=== PATIENT | male | born 1970 | race Caucasian/White ===

== ENCOUNTER 2018-03-24 09:01 | Day surgery (SDC) | payer OTHER ==
[2018-03-23 14:55] VITALS: BMI 23.9
[2018-03-24] MEDS ORDERED: EPINEPHrine 1 MG/ML AMP ONE (09:58)
[2018-03-24] MEDS ORDERED: Propofol 500 MG/50 ML VIAL ONE ×2 (10:07→10:09)
[2018-03-24] MEDS ORDERED: Fentanyl 100 MCG/2 ML VIAL ONE (10:07)
[2018-03-24] MEDS ORDERED: Lidocaine 1% PF 5 ML VIAL ONE (11:18)
[2018-03-24] MEDS ORDERED: PROPOFOL 200 MG/20 ML VIAL ONE (11:18)
[2018-03-24] MEDS ORDERED: Dexamethasone 20 MG/5 ML VIAL ONE (11:18)
[2018-03-24] MEDS ORDERED: Succinylcholine Chloride 20 MG/ML 10 ml SYRINGE FS ONE (11:18)
[2018-03-24] MEDS ORDERED: Ondansetron HCl/PF 4 MG/2 ML Vial ONE (11:18)
--- NOTE | 2018-03-24 15:35 | OP ---
DATE OF PROCEDURE: 03/24/2018 PREOPERATIVE DIAGNOSES: Recurrent respiratory papillomatosis and hoarseness. POSTOPERATIVE DIAGNOSES: Recurrent respiratory papillomatosis and hoarseness. PROCEDURE PERFORMED: Microsuspension laryngoscopy with CO2 and [employer] shaver assisted destruction of recurrent respiratory papillomas. FINDINGS: Patient had papillomas located primarily on the vocal process region of the posterior voca l cords and along the anterior one-third of the medial aspect of the cord. PROCEDURE IN DETAIL: After consent was obtained, the patient was identified, brought to the operatin g room, and placed on the operating table in supine position. Jet ventilating tube was placed and th e patient was placed under anesthesia. We then positioned the patient and suspended a laryngoscope. The laryngoscope was suspended from the table and we proceeded under microscopic visualization, the CO2 laser was used to destroy multiple laryngeal papillomas. We then used the laryngeal blade to marc ulk the posterior aspect of the vocal process and then we were able to use hemostasis. Topical adrenaline and topical lidocaine were applied. The patient was awakened, extubated, and taken to re covery room in a stable condition prior to discharge home.
--- NOTE | 2018-03-25 15:14 | EKG ---
Test Reason : Blood Pressure : / mmHG Vent. Rate : 048 BPM Atrial Rate : 048 BPM P-R Int : 166 ms QRS Dur : 084 ms QT Int : 436 ms P-R-T Axes : 045 020 044 degrees QTc Int : 389 ms Marked sinus bradycardia Minimal voltage criteria for LVH, may be normal variant Abnormal ECG When compared with ECG of 11-MAR-2017 07:16, No significant change was found Confirmed by PAIGE SAN, ELIZABETH ([id number] on 03/25/2018 3:13:53 PM Referred By: GRAEME Confirmed By:ELIZABETH GIBSON MD
== END 2018-03-24 13:01 | disposition home or self-care (01) ==
LOC: SDC 09:01
PROVIDERS: ATTEND Specialist
DX: D14.1 Benign neoplasm of larynx (principal); B97.7 Papillomavirus as the cause of diseases classified elsewhere; Z87.891 Personal history of nicotine dependence; Z88.0 Allergy status to penicillin; Z79.899 Other long term (current) drug therapy
CPT/HCPCS: 93005; 93010; J0171; J1100; J2001; J2405; J2704; J3010

== ENCOUNTER 2018-07-06 08:15 | Emergency (ER) | payer OTHER ==
[2018-07-06 09:06] LABS: #Eosinphils 0.1 thou/uL (0.0-0.7); #Lymphocytes 1.6 thou/uL (1.20-3.40); #Monocytes 0.4 thou/uL (0.11-0.59); %Basophils 0.7 % (0.0-1.0); %Eosinophils 1.9 % (0.0-10.0); %Lymphocytes 26.2 % (21.0-51.0); %Neutrophils 65.2 % (42.0-75.0); Hemoglobin 16.2 g/dL (14.0-18.0); Mean Corpuscular HGB CONC 33.8 g/dL (32.0-36.0); Mean Corpuscular Hemoglobin 28.4 pg (27.0-31.0); Mean Corpuscular Volume 83.9 fL (78.0-98.0); Mean Platelet Volume 7.1 fL (7.4-10.4); Platelet Count 290 thou/uL (130-400); RBC Distribution Width 12.1 % (11.5-14.5); Red Blood Cell (RBC) Count 5.72 mill/uL (4.70-6.10); White Blood Cell (WBC) Count 6.1 thou/uL (4.8-10.8)
[2018-07-06] MEDS ORDERED: Nitroglycerin 2% Ointment 1 INCH/1 GM Packet ONE (09:22)
[2018-07-06 09:23] LABS: ALT (SGPT) 15 U/L (8-55); AST (SGOT) 13 U/L (5-34); Albumin 4.3 g/dL (3.5-5.0); Alkaline Phosphatase 62 U/L (40-150); Anion Gap 12 mmol/L (10-20); BUN (Urea Nitrogen) 6 mg/dL (8.9-20.6); Bilirubin, Total 0.8 mg/dL (0.2-1.2); CK (CPK) 74 U/L (30-200); Calc. Creatinine Clearance 0 mL/min (70-130); Calcium 9.7 mg/dL (7.8-10.44); Carbon Dioxide 24 mmol/L (22-29); Chloride 106 mmol/L (98-107); Estimated GFR-MDRD Greater than 90; Globulin 2.7 g/dL (2.4-3.5); Glucose 101 mg/dL (70-105); Potassium 3.7 mmol/L (3.5-5.1); Sodium 138 mmol/L (136-145)
--- NOTE | 2018-07-06 09:33 | RAD ---
2 VIEW CHEST: Date: 07/06/18 INDICATION: Left-sided chest pain. FINDINGS: There is no consolidation, effusion, or pneumothorax. Cardiac silhouette is normal in size. Osseous s tructures intact. IMPRESSION: No focal consolidation. POS: [facility]
--- NOTE | 2018-07-09 11:57 | EKG ---
Test Reason : Blood Pressure : / mmHG Vent. Rate : 076 BPM Atrial Rate : 076 BPM P-R Int : 166 ms QRS Dur : 074 ms QT Int : 364 ms P-R-T Axes : 039 -03 041 degrees QTc Int : 409 ms Normal sinus rhythm Septal infarct , age undetermined Abnormal ECG No ST elevation/TN Confirmed by SHAMIKA SAN, LORNA ([id number]), assignment desk editor LUIS LEIGH ([id number]) on 07/09/2018 11:57:15 AM Referred By: Confirmed By:LORNA WICK MD
== END 2018-07-06 10:17 | disposition home or self-care (01) ==
LOC: ERS 08:15
DX: R07.9 Chest pain, unspecified (principal); F32.9 Major depressive disorder, single episode, unspecified
CPT/HCPCS: 71046; 80053; 82550; 83690; 83880; 84484; 85025; 85379; 93005

== ENCOUNTER 2019-05-16 06:39 | Outpatient (CLI) | payer OTHER ==
--- NOTE | 2019-05-16 08:37 | ULT ---
ULTRASOUND ABDOMEN COMPLETE: DATE: 05/16/2019 HISTORY: "Hernia of anterior abdominal wall" "Hernia is versus subcutaneous nodules/masses" 48-year-old male. FINDINGS: Gallbladder: Normal wall thickness. No gallstones or sludge identified. No pericholecystic fluid. Liver: Normal parenchymal echogenicity. Bilateral kidneys: No hydronephrosis. Pancreas: Nonspecific sonographic appearance. Common duct caliber: 4 mm. Abdominal aorta: No aneurysm Inferior vena cava: Unremarkable where visualized. Spleen: No splenomegaly. In the subcutaneous fat superficial to the anterior abdominal wall, there are several oval masses wit h intermediate-low echogenicity. No hyperemia on Doppler. They are present both to the right and left of the umbilicus. The largest is to the left, measuring approximately 4 x 3.5 x 1.5 cm. IMPRESSION: 1) multiple solid masses in the subcutaneous fat ventral and superficial to the abdominal wall. To de termine whether these are lipomas or composed of other nonfatty tissues, further evaluation with CT of abdomen and pelvis is recommended (preferably with IV contrast unless contraindicated). 2) contents of the abdominal cavity are unremarkable.
== END 2019-05-16 06:40 | disposition home or self-care (01) ==
LOC: BICULT 06:39
PROVIDERS: ATTEND Internal Medicine
DX: Z12.11 Encounter for screening for malignant neoplasm of colon (principal); K43.9 Ventral hernia without obstruction or gangrene; R19.09 Other intra-abdominal and pelvic swelling, mass and lump
CPT/HCPCS: 76700

== ENCOUNTER 2019-06-08 08:51 | Outpatient (CLI) | payer OTHER ==
--- NOTE | 2019-06-08 10:26 | CT ---
CT ABDOMEN AND PELVIS WITH IV CONTRAST 06/08/2019 CLINICAL INFORMATION: Abnormal abdominal ultrasound. Palpable masses abdomen. COMPARISON: Abdominal ultrasound examination on 05/16/2019 Technique: Multiple contiguous axial CT images are obtained through the abdomen and pelvis with IV contrast. Cor onal reformatted images are provided. FINDINGS: Lower Chest: There is linear scar versus atelectasis in each lower lobe. Vessels: Vascular calcifications are seen in the abdominal aorta and involving the iliac arteries. Abdomen: Portal vein:Patent Gallbladder: Within normal limits for CT imaging. Liver: within normal limits. Spleen: within normal limits. Pancreas: within normal limits. Adrenals: within normal limits. Kidneys: within normal limits. Bowel: Normal caliber. Appendix: The appendix is visualized and normal in caliber. Peritoneum: No ascites or free air; no fluid collection. Mesentery and Retroperitoneum: No enlarged mesenteric or retroperitoneal lymph nodes. Abdominal Wall: No discrete mass is seen within the abdominal wall subcutaneous soft tissues. Patient 's palpable abnormalities were marked with a needle cap, and no discrete lesion is seen underlying the region of the markers. Ultrasound examination suggested slight increased echogenic masses which m ay be related to lipomas. However, on CT evaluation, no definite well encapsulated fat density lesion is seen to definitively suggest a lipoma. No inflammatory stranding or fluid is seen in the ab dominal wall subcutaneous soft tissues. Pelvis: Reproductive Organs: No pelvic masses. Pelvis within normal limits. Bladder: within normal limits. Bones: Bone islands are seen in the proximal femurs bilaterally. Midline defect is seen involving the posterior elements at L5 likely developmental in origin. There are bilateral pars defects at L5 with trace anterolisthesis of L5 on S1. IMPRESSION: 1. No acute findings are seen in the abdomen or pelvis. 2. No discrete mass or encapsulated area of fat density to suggest a lipoma is seen within the abdomi nal wall subcutaneous soft tissues. No ventral abdominal wall hernia is identified. 3. Spondylolisthesis lumbosacral junction.
[2019-06-08] MEDS ORDERED: Iopamidol-370 76% 500 ML 1 ML ONE (15:49)
== END 2019-06-08 08:52 | disposition home or self-care (01) ==
LOC: BICCT 08:51
PROVIDERS: ATTEND Internal Medicine
DX: R93.89 Abnormal findings on diagnostic imaging of other specified body structures (principal); M43.17 Spondylolisthesis, lumbosacral region
CPT/HCPCS: 74177; Q9967

== ENCOUNTER 2019-08-31 07:47 | Day surgery (SDC) | payer OTHER ==
[2019-08-30 11:49] VITALS: BMI 25.1
[2019-08-31] MEDS ORDERED: Ondansetron PF 4 MG/2 ML Vial ONE (09:37)
[2019-08-31] MEDS ORDERED: Succinylcholine Chloride 20 MG/ML 10 ml SYRINGE FS ONE (09:37)
[2019-08-31] MEDS ORDERED: EPINEPHrine 1 MG/ML AMP ONE (10:24)
[2019-08-31] MEDS ORDERED: Propofol 500 MG/50 ML VIAL ONE (10:37)
[2019-08-31] MEDS ORDERED: Fentanyl 250 MCG/5 ML VIAL ONE (10:37)
[2019-08-31] MEDS ORDERED: Midazolam HCl 2 mg/2 ml Vial ONE (10:51)
--- NOTE | 2019-08-31 12:11 | OP ---
DATE OF PROCEDURE: 08/31/2019 PREOPERATIVE DIAGNOSES: Recurrent respiratory papillomatosis. POSTOPERATIVE DIAGNOSIS: Recurrent respiratory papillomatosis. PROCEDURES PERFORMED: 1. Microsuspension laryngoscopy with destruction of laryngeal lesion. 2. Microsuspension laryngoscopy with biopsy. PROCEDURE IN DETAIL: After consent was obtained, the patient was identified and brought to the OR and placed on the operating table in supine position. General anesthesia was obtained with a jet-ventilating endotracheal tube. The patient was positioned for surgery. The patient was then positioned for laryngoscopy and the laryngoscope was suspended from the table. We then got a 0 degree scope and systematically evaluated the larynx and photographs were obtained, that showed extensive papillomatosis along the posterior cord and arytenoid region. We using a laryngeal coagulating operator shaver blade, we were able to remove the majority of the masses. Specimens were taken for histologic evaluation to make sure there has not been any malignant transformation. At the completion of the procedure, both topical lidocaine and adrenaline were sprayed on the larynx and placed on the lesion to facilitate hemostasis and prevent postoperative laryngospasm. The patient was then awakened, extubated, taken to recovery room in stable condition prior to discharge home. Job ID: [id number]
--- NOTE | 2019-09-04 00:06 | EKG ---
Test Reason : PREOP Blood Pressure : / mmHG Vent. Rate : 055 BPM Atrial Rate : 055 BPM P-R Int : 168 ms QRS Dur : 084 ms QT Int : 422 ms P-R-T Axes : 023 013 028 degrees QTc Int : 403 ms Sinus bradycardia Nonspecific T wave abnormality Abnormal ECG When compared with ECG of 06-JUL-2018 08:24, Criteria for Septal infarct are no longer Present Confirmed by Solomon SOLORIO ([id number]) on 09/04/2019 12:05:28 AM Referred By: GRAEME Confirmed By:Solomon SOLORIO
== END 2019-08-31 13:15 | disposition home or self-care (01) ==
LOC: SDC 07:47
PROVIDERS: ATTEND Specialist
PROC: 0CBS8ZZ Excision of Larynx, Via Natural or Artificial Opening Endoscopic (ICD-10-PCS; principal; 2019-08-31)
DX: D14.1 Benign neoplasm of larynx (principal); H91.8X1 Other specified hearing loss, right ear; E78.5 Hyperlipidemia, unspecified; Z87.891 Personal history of nicotine dependence; Z79.899 Other long term (current) drug therapy; Z88.0 Allergy status to penicillin; Z98.890 Other specified postprocedural states
CPT/HCPCS: 88305; 93005; 93010; J0171; J2250; J2405; J2704; J3010

== ENCOUNTER 2021-03-11 17:14 | Outpatient (CLI) | payer OTHER ==
[2021-03-12 13:29] LABS: SARS-CoV-2 PCR by NAA Not Detected (NotDetected)
== END 2021-03-11 17:15 | disposition home or self-care (01) ==
LOC: LABBT 17:14
PROVIDERS: ATTEND Specialist
DX: Z01.818 Encounter for other preprocedural examination (principal); R49.0 Dysphonia; R06.89 Other abnormalities of breathing; B97.7 Papillomavirus as the cause of diseases classified elsewhere; Z20.822 Contact with and (suspected) exposure to COVID-19
CPT/HCPCS: 93005; 93010; U0003; U0005

== ENCOUNTER 2021-03-13 11:25 | Day surgery (SDC) | payer OTHER ==
[2021-03-12 12:42] VITALS: BMI 26.2
[2021-03-13] MEDS ORDERED: Acetaminophen 500 MG TAB ONE (11:40)
[2021-03-13] MEDS ORDERED: EPINEPHrine 1 MG/ML AMP ONE (12:07)
[2021-03-13] MEDS ORDERED: Fentanyl 100 MCG/2 ML VIAL ONE (12:14)
[2021-03-13] MEDS ORDERED: Propofol 1,000 MG/100 ML VIAL IV ONE (12:15)
[2021-03-13] MEDS ORDERED: PHENYLEPHRINE-NS 100 MCG/ML 10 ML SYRINGE ONE (12:58)
[2021-03-13] MEDS ORDERED: PROPOFOL 200 MG/20 ML VIAL ONE (12:58)
[2021-03-13] MEDS ORDERED: Succinylcholine 200 MG/10 ml SYRINGE FS ONE (12:58)
[2021-03-13] MEDS ORDERED: Dexamethasone 20 MG/5 ML VIAL ONE (12:58)
[2021-03-13] MEDS ORDERED: Ondansetron PF 4 MG/2 ML Vial ONE (12:58)
== END 2021-03-13 14:48 | disposition home or self-care (01) ==
LOC: SDC 11:25
PROVIDERS: ATTEND Specialist
PROC: 0CBT8ZZ Excision of Right Vocal Cord, Via Natural or Artificial Opening Endoscopic (ICD-10-PCS; principal; 2021-03-13)
PROC: 0CBV8ZZ Excision of Left Vocal Cord, Via Natural or Artificial Opening Endoscopic (ICD-10-PCS; principal; 2021-03-13)
DX: D14.1 Benign neoplasm of larynx (principal); B97.7 Papillomavirus as the cause of diseases classified elsewhere; I25.10 Atherosclerotic heart disease of native coronary artery without angina pectoris; F17.290 Nicotine dependence, other tobacco product, uncomplicated; Z88.0 Allergy status to penicillin; Z79.899 Other long term (current) drug therapy
CPT/HCPCS: J0171; J1100; J2405; J2704; J3010

== ENCOUNTER 2022-08-24 17:18 | Outpatient (CLI) | payer OTHER | END 2022-08-24 17:19 | disposition home or self-care (01) | LOC: LABBT 17:18 | PROVIDERS: ATTEND Specialist | DX: Z01.810 Encounter for preprocedural cardiovascular examination (principal); J38.1 Polyp of vocal cord and larynx | CPT/HCPCS: 93005; 93010 ==

== ENCOUNTER 2022-08-27 07:17 | Day surgery (SDC) | payer OTHER ==
[2022-08-26 15:20] VITALS: BMI 26.2
[2022-08-27] MEDS ORDERED: Lidocaine 1% MPF 2 ML VIAL ONE (09:32)
[2022-08-27] MEDS ORDERED: fentaNYL PF 100 MCG/2 ML SYRINGE ONE (09:47)
[2022-08-27] MEDS ORDERED: PROPOFOL 200 MG/20 ML VIAL ONE (10:23)
[2022-08-27] MEDS ORDERED: Dexamethasone 20 MG/5 ML VIAL ONE (10:23)
[2022-08-27] MEDS ORDERED: Ondansetron PF 4 MG/2 ML Vial ONE (10:23)
[2022-08-27] MEDS ORDERED: Esmolol 100 MG/10 ML VIAL ONE (10:23)
[2022-08-27] MEDS ORDERED: Rocuronium Bromide 10 MG/ML (10ML VIAL) ONE (10:23)
[2022-08-27] MEDS ORDERED: EPINEPHrine 1 MG/ML AMP ONE (10:45)
== END 2022-08-27 12:29 | disposition home or self-care (01) ==
LOC: SDC 07:17
PROVIDERS: ATTEND Specialist
PROC: 0C5T8ZZ Destruction of Right Vocal Cord, Via Natural or Artificial Opening Endoscopic (ICD-10-PCS; principal; 2022-08-27)
DX: D14.1 Benign neoplasm of larynx (principal); I10 Essential (primary) hypertension; Z79.899 Other long term (current) drug therapy; Z88.0 Allergy status to penicillin
CPT/HCPCS: 88305; J0171; J1100; J2405; J2704